=== PATIENT | female | born 2000 ===

== ENCOUNTER 2020-09-15 10:13 | Inpatient (IN) ==
[2020-09-15] MEDS ORDERED: CITRIC ACID/SODIUM CITRATE 30 ML UDCUP PO ONE (10:51)
[2020-09-15] MEDS ORDERED: ceFAZolin 2,000 MG in PREMIX 1 EACH IV ONE (10:51)
[2020-09-15] MEDS ORDERED: FAMOTIDINE 20 MG/2 ML VIAL IV ONE (10:51)
[2020-09-15 11:16] LABS: Basophils % 0.2 % (0.0-0.8); Eosinophils # 0.1 10*3/uL (0.0-0.87); Eosinophils % 0.6 % (0.00-10.9); Hematocrit 38.6 VOL% (35.7-47.0); Hemoglobin 12.6 GM/DL (12.0-16.0); Immature Granulocytes % 1.7 %; Immature Granulocytes Absolute 0.15 #; Lymphocytes # 1.6 10*3/uL (1.4-4.0); Lymphocytes % 17.2 % (21.3-54.2); Mean Corpuscular HGB Conc 32.6 GM/DL (32-36); Mean Corpuscular Volume 89.6 FL (87-102); Mean Platelet Volume 12.1 FL (9.6-12.0); Monocytes % 7.3 % (1.7-12.7); Platelet Count 147 T/CUMM (130-400); Red Blood Count 4.31 MC/CUMM (3.8-5.5); Red Cell Distribution Width 14.7 % (9.3-17.3)
[2020-09-15] MEDS ORDERED: miSOPROStoL 200 MCG TABLET ONE (11:26)
[2020-09-15] MEDS ORDERED: TRANEXAMIC ACID 1,000 MG/10 ML VIAL ONE (11:26)
[2020-09-15] MEDS ORDERED: SODIUM CHLORIDE 0.9% 0 ML IV ONE (11:27)
[2020-09-15] MEDS ORDERED: METHYLERGONOVINE 0.2 MG/1 ML AMP ONE (11:27)
[2020-09-15] MEDS ORDERED: CARBOPROST TROMETHAMINE 250 MCG/ML AMP IM ONE (11:27)
[2020-09-15] MEDS ORDERED: OXYTOCIN/LR 30 UNIT/1,000 ML BAG IV ONE (12:02)
[2020-09-15] MEDS ORDERED: OXYTOCIN 10 UNIT/ML VIAL IM ONE (12:02)
[2020-09-15] MEDS: LACTATED RINGERS 1,000 ML IV SCH ×2 (13:40→14:40)
[2020-09-15] MEDS ORDERED: PHENYLEPHRINE 1 MG/10 ML SYRINGE IV ONE (14:34)
[2020-09-15] MEDS ORDERED: BUPIVACAINE SPINAL 0.75% 2 ML AMP SPINAL ONE (14:34)
[2020-09-15] MEDS ORDERED: ONDANSETRON 4 MG/2 ML VIAL ONE (14:34)
[2020-09-15] MEDS ORDERED: ePHEDrine 50 MG/ML VIAL ONE (14:58)
[2020-09-15] MEDS ORDERED: ESMOLOL 100 MG/10 ML VIAL IV ONE (15:02)
[2020-09-15] MEDS ORDERED: MIDAZOLAM 2 MG/2 ML VIAL ONE (15:24)
[2020-09-15 15:38] LABS: Bacteria,Urine Occasional /HPF (Few); Bilirubin,Urine Negative (Negative); Blood, Urine Negative (Negative); Glucose,Urine (UA) Negative (Negative); Ketones,Urine 80 mg/dL (Negative); Mucus,Urine Few /LPF (Occasional); Nitrite,Urine Negative (Negative); Protein,Urine Negative; RBC,Urine <1 /HPF (0-4); Squamous Epithelial Cell,Urine Occasional /HPF (0-10); Urine Appearance CLEAR (Clear); Urine Color Yellow (Yellow); Urine Specific Gravity 1.028 (1.001-1.035); Urine Urobilinogen < 2.0 EU/DL (0.2-1.0); WBC,Urine 2 /HPF (0-6)
[2020-09-15 15:40] LABS: Cord Arterial Blood HCO3 24.6 MMOL/L
[2020-09-15 15:42] LABS: Cord Venous Blood HCO3 20.5 MMOL/L; Cord Venous Blood PCO2 36.3 MMHG; Cord Venous Blood PO2 31.9 MMHG
[2020-09-15] MEDS ORDERED: KETOROLAC 30 MG/1 ML VIAL IV SCH (16:00)
[2020-09-15] MEDS ORDERED: ACETAMINOPHEN 500 MG TABLET PO SCH (16:00)
[2020-09-15] MEDS ORDERED: ACETAMINOPHEN 325 MG TABLET PO PRN (16:17)
[2020-09-15] MEDS ORDERED: ONDANSETRON 4 MG/2 ML VIAL IV PRN (16:17)
[2020-09-15] MEDS ORDERED: SIMETHICONE CHEW 80 MG TABLET PO PRN (16:17)
[2020-09-15] MEDS ORDERED: RHO(D) IMMUNE GLOBULIN 300 MCG SYRINGE IM ONE (16:17)
[2020-09-15] MEDS ORDERED: MAGNESIUM HYDROXIDE SUSP 30 ML UDCUP PO PRN (16:17)
[2020-09-15] MEDS ORDERED: OXYTOCIN/LR 20 UNIT/1,000 ML BAG IV ONE (16:17)
[2020-09-15] MEDS ORDERED: LACTATED RINGERS 1,000 ML IV SCH (16:30)
[2020-09-15] MEDS: DOCUSATE SODIUM 100 MG CAPSULE PO SCH (23:21)
[2020-09-15] MEDS: ACETAMINOPHEN 500 MG TABLET PO SCH (23:27)
[2020-09-16] MEDS: KETOROLAC 30 MG/1 ML VIAL IV SCH ×2 (01:39→10:02)
[2020-09-16] MEDS: ACETAMINOPHEN 500 MG TABLET PO SCH ×4 (05:00→22:36)
[2020-09-16 05:31] LABS: Basophils % 0.3 % (0.0-0.8); Eosinophils # 0.1 10*3/uL (0.0-0.87); Eosinophils % 0.7 % (0.00-10.9); Hematocrit 32.8 VOL% (35.7-47.0); Hemoglobin 10.8 GM/DL (12.0-16.0); Immature Granulocytes % 0.3 %; Immature Granulocytes Absolute 0.02 #; Lymphocytes # 1.8 10*3/uL (1.4-4.0); Lymphocytes % 25.8 % (21.3-54.2); Mean Corpuscular HGB Conc 32.9 GM/DL (32-36); Mean Corpuscular Volume 89.6 FL (87-102); Mean Platelet Volume 12.9 FL (9.6-12.0); Monocytes % 6.7 % (1.7-12.7); Neutrophils % 66.2 % (38.7-73.9); Platelet Count 106 T/CUMM (130-400); Red Blood Count 3.66 MC/CUMM (3.8-5.5); Red Cell Distribution Width 14.7 % (9.3-17.3)
[2020-09-16] MEDS: DOCUSATE SODIUM 100 MG CAPSULE PO SCH ×2 (10:01→20:52)
[2020-09-16] MEDS: MULTIVITAMIN (PRENATAL) TABLET PO SCH (10:02)
[2020-09-16] MEDS: METOCLOPRAMIDE 10 MG TABLET PO SCH ×2 (10:02→13:29)
[2020-09-16] MEDS: IBUPROFEN 800 MG TABLET PO PRN (14:53)
[2020-09-16] MEDS ORDERED: METOCLOPRAMIDE 10 MG TABLET PO SCH (16:00)
[2020-09-17] MEDS: ACETAMINOPHEN 500 MG TABLET PO SCH ×2 (03:04→09:49)
[2020-09-17] MEDS: MULTIVITAMIN (PRENATAL) TABLET PO SCH (08:27)
[2020-09-17] MEDS: IBUPROFEN 800 MG TABLET PO PRN (08:28)
[2020-09-17] MEDS: DOCUSATE SODIUM 100 MG CAPSULE PO SCH (08:28)
[2020-09-17 11:13] VITALS: BP 107/64
== END 2020-09-17 13:20 | disposition home or self-care (01) | DRG 540 ==
LOC: N.LD 10:13 → N.OB 20:45
PROVIDERS: ADMIT Obstetrics & Gynecology; ATTEND Obstetrics & Gynecology
PROC: LDCSECT (ICD-10-PCS; 2020-09-15 13:15)

== ENCOUNTER 2022-02-20 22:40 | Inpatient (IN) ==
[2022-02-21] MEDS ORDERED: BUTORPHANOL 2 MG/ML VIAL IV PRN (01:35)
[2022-02-21] MEDS ORDERED: ONDANSETRON 4 MG/2 ML VIAL IV PRN ×2 (01:36→14:50)
[2022-02-21 03:27] LABS: Basophils % 0.2 % (0.0-0.8); Eosinophils # 0.1 10*3/uL (0.0-0.87); Eosinophils % 1.5 % (0.00-10.9); Hematocrit 34.3 VOL% (35.7-47.0); Hemoglobin 11.1 GM/DL (12.0-16.0); Immature Granulocytes % 0.5 %; Immature Granulocytes Absolute 0.05 #; Lymphocytes # 1.9 10*3/uL (1.4-4.0); Lymphocytes % 19.9 % (21.3-54.2); Mean Corpuscular HGB Conc 32.4 GM/DL (32-36); Mean Corpuscular Volume 87.1 FL (87-102); Mean Platelet Volume 11.8 FL (9.6-12.0); Monocytes # 0.9 10*3/uL (0.11-0.8); Neutrophils % 68.9 % (38.7-73.9); Platelet Count 142 T/CUMM (130-400); Red Blood Count 3.94 MC/CUMM (3.8-5.5); White Blood Count 9.6 T/CUMM (4-12)
[2022-02-21 04:00] LABS: Alanine Aminotransferase 10 U/L (13-56); Albumin 2.4 G/DL (3.4-5.0); Alkaline Phosphatase 152 U/L (45-117); Aspartate Amino Transferase 8 U/L (0-37); Bilirubin,Total < 0.39 MG/DL (0.20-1.00); Blood Urea Nitrogen 8 MG/DL (7-18); Calcium 8.3 MG/DL (8.5-10.1); Carbon Dioxide 23 MMOL/L (21-32); Chloride 110 MMOL/L (98-107); Glucose 78 MG/DL (74-106); Osmolality,Calculated 275.4 MOS/KG (273-304); Potassium 3.9 MMOL/L (3.5-5.1); Sodium 140 MMOL/L (136-145); Total Protein 6.4 G/DL (6.4-8.2)
[2022-02-21] MEDS ORDERED: ACETAMINOPHEN 500 MG TABLET PO PRN (06:09)
[2022-02-21] MEDS ORDERED: OXYTOCIN/LR 30 UNIT/1,000 ML BAG IV ONE (12:00)
[2022-02-21] MEDS ORDERED: OXYTOCIN 10 UNIT/ML VIAL IM ONE (12:00)
[2022-02-21] MEDS ORDERED: ceFAZolin 2,000 MG/50 ML DUPLEX IV ONE (12:00)
[2022-02-21] MEDS ORDERED: FAMOTIDINE 20 MG/2 ML VIAL IV ONE (12:00)
[2022-02-21] MEDS ORDERED: CITRIC ACID/SODIUM CITRATE 30 ML UDCUP PO ONE (12:00)
[2022-02-21] MEDS ORDERED: OXYTOCIN/LR 20 UNIT/1,000 ML BAG IV ONE ×2 (12:00→14:50)
[2022-02-21] MEDS ORDERED: LACTATED RINGERS 1,000 ML IV SCH ×2 (12:00→15:00)
[2022-02-21] MEDS ORDERED: METHYLERGONOVINE 0.2 MG/1 ML AMP IM PRN (12:00)
[2022-02-21] MEDS ORDERED: CARBOPROST TROMETHAMINE 250 MCG/ML AMP IM PRN (12:00)
[2022-02-21] MEDS ORDERED: miSOPROStoL 200 MCG TABLET RECTAL PRN (12:00)
[2022-02-21] MEDS ORDERED: TRANEXAMIC ACID 1,000 MG in SODIUM CHLORIDE 0.9% 100 ML IV PRN (12:00)
[2022-02-21] MEDS ORDERED: PHENYLEPHRINE 1 MG/10 ML SYRINGE IV ONE (13:31)
[2022-02-21] MEDS ORDERED: BUPIVACAINE MPF 0.5% /EPI 30 ML VIAL ONE (13:31)
[2022-02-21] MEDS ORDERED: ONDANSETRON 4 MG/2 ML VIAL ONE (13:31)
[2022-02-21] MEDS ORDERED: buprenorphine HCL 0.3 MG/ML VIAL ONE (13:31)
[2022-02-21] MEDS ORDERED: MIDAZOLAM 2 MG/2 ML VIAL ONE (14:26)
[2022-02-21 14:29] LABS: Cord Arterial Blood HCO3 20.8 MMOL/L
[2022-02-21 14:33] LABS: Cord Venous Blood HCO3 21.7 MMOL/L; Cord Venous Blood PCO2 43.3 MMHG; Cord Venous Blood PO2 30.2
[2022-02-21 14:42] LABS: Bilirubin,Urine Negative (Negative); Blood, Urine Negative (Negative); Glucose,Urine (UA) Negative (Negative); Ketones,Urine Negative (Negative); Nitrite,Urine Negative (Negative); Protein,Urine Negative (Negative); Urine Appearance Clear (Clear); Urine Color Yellow (Yellow); Urine Specific Gravity 1.015 (1.001-1.035); Urine Urobilinogen 0.2 eU/dL (<2.0)
[2022-02-21 14:44] LABS: Bacteria,Urine Occasional /HPF (Few); Mucus,Urine Occasional /LPF (Occasional); RBC,Urine <1 /HPF (0-4); Squamous Epithelial Cell,Urine Occasional /HPF (0-10)
[2022-02-21] MEDS ORDERED: RHO(D) IMMUNE GLOBULIN 300 MCG SYRINGE IM ONE (14:50)
[2022-02-21] MEDS ORDERED: SIMETHICONE CHEW 80 MG TABLET PO PRN (14:50)
[2022-02-21] MEDS ORDERED: ACETAMINOPHEN 325 MG TABLET PO PRN (14:50)
[2022-02-21] MEDS ORDERED: MAGNESIUM HYDROXIDE SUSP 30 ML UDCUP PO PRN (14:50)
[2022-02-21] MEDS: DOCUSATE SODIUM 100 MG CAPSULE PO SCH (21:23)
[2022-02-21] MEDS: IBUPROFEN 800 MG TABLET PO PRN (21:23)
[2022-02-21 21:34] LABS: Basophils % 0.2 % (0.0-0.8); Eosinophils % 0.4 % (0.00-10.9); Hematocrit 32.9 VOL% (35.7-47.0); Hemoglobin 10.7 GM/DL (12.0-16.0); Immature Granulocytes % 0.5 %; Immature Granulocytes Absolute 0.05 #; Lymphocytes # 1.1 10*3/uL (1.4-4.0); Lymphocytes % 10.5 % (21.3-54.2); Mean Corpuscular HGB Conc 32.5 GM/DL (32-36); Mean Corpuscular Volume 87.5 FL (87-102); Mean Platelet Volume 11.7 FL (9.6-12.0); Monocytes # 0.6 10*3/uL (0.11-0.8); Monocytes % 5.6 % (1.7-12.7); Neutrophils % 82.8 % (38.7-73.9); Platelet Count 131 T/CUMM (130-400); Red Blood Count 3.76 MC/CUMM (3.8-5.5); Red Cell Distribution Width 14.8 % (9.3-17.3); White Blood Count 10.9 T/CUMM (4-12)
[2022-02-21] MEDS: ACETAMINOPHEN 500 MG TABLET PO SCH (22:06)
[2022-02-22 04:40] LABS: Basophils % 0.3 % (0.0-0.8); Eosinophils # 0.1 10*3/uL (0.0-0.87); Hematocrit 32.3 VOL% (35.7-47.0); Hemoglobin 10.3 GM/DL (12.0-16.0); Immature Granulocytes % 0.6 %; Immature Granulocytes Absolute 0.05 #; Lymphocytes # 1.6 10*3/uL (1.4-4.0); Lymphocytes % 18.4 % (21.3-54.2); Mean Corpuscular HGB Conc 31.9 GM/DL (32-36); Mean Corpuscular Volume 88.7 FL (87-102); Mean Platelet Volume 11.8 FL (9.6-12.0); Monocytes # 0.6 10*3/uL (0.11-0.8); Monocytes % 7.1 % (1.7-12.7); Neutrophils % 72.6 % (38.7-73.9); Platelet Count 126 T/CUMM (130-400); Red Blood Count 3.64 MC/CUMM (3.8-5.5); Red Cell Distribution Width 14.7 % (9.3-17.3); White Blood Count 8.6 T/CUMM (4-12)
[2022-02-22 05:07] LABS: Alanine Aminotransferase 11 U/L (13-56); Albumin 1.9 G/DL (3.4-5.0); Alkaline Phosphatase 126 U/L (45-117); Aspartate Amino Transferase 16 U/L (0-37); Bilirubin,Total < 0.39 MG/DL (0.20-1.00); Blood Urea Nitrogen 6 MG/DL (7-18); Calcium 8.4 MG/DL (8.5-10.1); Carbon Dioxide 26 MMOL/L (21-32); Chloride 108 MMOL/L (98-107); Glucose 72 MG/DL (74-106); Osmolality,Calculated 271.7 MOS/KG (273-304); Potassium 3.9 MMOL/L (3.5-5.1); Sodium 138 MMOL/L (136-145); Total Protein 5.3 G/DL (6.4-8.2)
[2022-02-22] MEDS: ACETAMINOPHEN 500 MG TABLET PO SCH ×2 (06:10→14:46)
[2022-02-22] MEDS: DOCUSATE SODIUM 100 MG CAPSULE PO SCH ×2 (08:48→20:56)
[2022-02-22] MEDS: METOCLOPRAMIDE 10 MG TABLET PO SCH ×2 (08:48→16:40)
[2022-02-22] MEDS: MULTIVITAMIN (PRENATAL) TABLET PO SCH (08:48)
[2022-02-23] MEDS: METOCLOPRAMIDE 10 MG TABLET PO SCH (05:12)
[2022-02-23] MEDS: DOCUSATE SODIUM 100 MG CAPSULE PO SCH (08:51)
[2022-02-23] MEDS: MULTIVITAMIN (PRENATAL) TABLET PO SCH (08:52)
[2022-02-23] MEDS: IBUPROFEN 800 MG TABLET PO PRN (11:14)
[2022-02-23 15:25] VITALS: BP 101/58
== END 2022-02-23 13:11 | disposition home or self-care (01) | DRG 788 ==
LOC: N.LDOUT 22:40 → N.LD 22:44 → N.OB 02-21 17:40
PROVIDERS: ADMIT Obstetrics & Gynecology; ATTEND Obstetrics & Gynecology
PROC: LDCSECT (ICD-10-PCS; 2022-02-21 12:00)